=== PATIENT | female | born 1945 | race African-American/Black ===

== ENCOUNTER 2023-11-10 12:55 | Emergency (ER) | payer MEDICARE, SELFPAY ==
--- NOTE | ~2023-11-10 | XR_ITS ---
EXAMINATION: XR knee LT 3V DATE: 11/10/2023 14:10 INDICATION: Left knee injury. TECHNIQUE: 3 views of left knee were obtained. COMPARISON: None. FINDINGS: Bone alignment is normal. No fracture. There is severe osteoarthritis of medial and patello femoral compartments and moderate osteoarthritis of lateral compartment. No knee joint effusion. Ther e is a loose body in the knee joint. IMPRESSION: 1. Severe left knee osteoarthritis with loose body. Reviewed, dictated and finalized at location A.
--- NOTE | ~2023-11-10 | XR_ITS ---
EXAMINATION: XR hip LT min 2V DATE: 11/10/2023 14:09 INDICATION: Left hip injury. TECHNIQUE: 2 views of left hip were obtained. COMPARISON: None. FINDINGS: Bone alignment is normal. No fracture. There is moderate left hip osteoarthritis. There is severe lumbar spondylosis. There is a calcified uterine fibroid. IMPRESSION: 1. Moderate left hip osteoarthritis. Reviewed, dictated and finalized at location A.
[2023-11-10 13:14] VITALS: BP 175/89; PULSE 87; RESP 18; TEMP 36.8; O2SAT 100
--- NOTE | 2023-11-10 13:25 | ED.FEMALEGU ---
HPI - Female Genitourinary General Chief complaint: Urogenital-Female Stated complaint: Urinating/Chills Time Seen by Provider: 11/10/23 13:26 Source: patient Mode of arrival: ambulatory Limitations: no limitations History of Present Illness HPI Narrative: 78 yo F presents with her sister today with c/o urinary frequency for approx. 2 wks. Getting worse past few days and c/o generalized weakness. Pt is from [place], [place] and is staying with her sister for a few wks due to caregiver out of town. Sister states pt has been more tired and decreased appetite and is up and down to the bathroom. Today they went to the old location of the [facility] and pt became weak while standing in the lobby and fell onto L knee and L hip. States she kind of caught herself and lowered herself to the ground. Was able to get up with help and walked back out to the car. Normally uses a cane or a walker. [facility] in wheelchair at [facility]. AFebrile. Denies N/V. Alert and talkative, somewhat ALGAACIQ. All systems reviewed and negative except as noted above. Related Data Home Medications Medication Instructions Recorded Confirmed brimonidine 0.2 % eye drops 1 drp EACH EYE BID 11/10/23 11/10/23 carvedilol 25 mg tablet 25 mg PO DAILY 11/10/23 11/10/23 citalopram 20 mg tablet 20 mg PO DAILY 11/10/23 11/10/23 clonidine HCl 0.2 mg tablet 0.2 mg PO DAILY 11/10/23 11/10/23 clonidine HCl 0.3 mg tablet 0.3 mg PO DAILY 11/10/23 11/10/23 donepezil 5 mg tablet 5 mg PO DAILY 11/10/23 11/10/23 lisinopril 40 mg tablet 40 mg PO DAILY 11/10/23 11/10/23 megestrol 20 mg tablet 20 mg PO DAILY 11/10/23 11/10/23 omeprazole 20 mg capsule,delayed 20 mg PO DAILY 11/10/23 11/10/23 release Allergies Allergy/AdvReac Type Severity Reaction Status Date / Time erythromycin base Allergy Rash Verified 11/10/23 13:12 Review of Systems Review of Systems: CONSTITUTIONAL: Denies fever, chills, or sweats. EYES: Denies visual changes, redness, or discharge. ENT: Denies rhinorrhea, congestion, sore throat, or otalgia. CARDIOVASCULAR: Denies chest pain, palpitations, or edema. RESPIRATORY: Denies cough or dyspnea. GASTROINTESTINAL: Denies abdominal pain, nausea, vomiting, or diarrhea. GENITOURINARY: Reports dysuria, frequency. Denies hematuria. SKIN: Denies rash or itching. MUSCULOSKELETAL: Denies back pain, joint pain, or myalgia. NEUROLOGIC: Denies headache, numbness, or weakness. PSYCHIATRIC: Denies anxiety or depression. All other systems reviewed are negative, except as documented in HPI. PMFSH Comments At time of signature, agree with nursing past medical, surgical, social and family history. There is no relevant family history pertinent to the presenting complaint. Exam Narrative: GENERAL: This is a well-nourished, well-developed patient, in no apparent distress. HEAD: normocephalic, atraumatic. EYES: PERRL. Sclera clear/white. Vision is grossly intact. EARS: External ears normal NOSE: External nose normal NECK: Neck supple, non-tender without lymphadenopathy, masses or thyromegaly. CARDIOVASCULAR: Regular rate and rhythm without murmurs, gallops, or rubs. RESPIRATORY: Clear to auscultation. Breath sounds equal bilaterally. No wheezes, rales, or rhonchi. SKIN: warm, Dry, intact with no suspicious lesions or rash, good texture and turgor. NEURO: awake, alert, and oriented to person, place and time. There were no obvious focal neurologic abnormalities. EXTREMITIES: Generalized tenderness to left knee with mild swelling. No bruising noted. Anterior posterior drawer testing negative. Normal range of motion. Tenderness to anterior left hip joint region. Normal range of motion. BACK: Nontender without deformity. Course Course Level of Care: Express Care Visit Vital Signs Vital signs: Vital Signs Temperature 36.8 C 11/10/23 13:14 Pulse Rate 87 11/10/23 13:14 Respiratory Rate 18 11/10/23 13:14 Blood Pressure 175/89 H 11/10/23 13:14 Pulse Oximetry
== END 2023-11-10 14:42 | disposition home or self-care (01) ==
PROVIDERS: Emergency Provider Nurse Practitioner Family
DX: N39.0 Urinary tract infection, site not specified (principal); S70.02XA Contusion of left hip, initial encounter; W19.XXXA Unspecified fall, initial encounter; I10 Essential (primary) hypertension; Z86.73 Personal history of transient ischemic attack (TIA), and cerebral infarction without residual deficits
CPT/HCPCS: 73502; 73562; 81003; 87086; 87088; 99214; G0463